=== PATIENT | female | born 1965 | race African-American/Black ===

== ENCOUNTER 2021-09-27 14:23 | Observation (INO) ==
[2021-09-27 17:35] LABS: Bacteria,Urine Many /HPF (Few); Hyaline Casts,Urine 2 /LPF (0-3); Mucus,Urine Moderate /LPF (Occasional); RBC,Urine 2 /HPF (0-4); Squamous Epithelial Cell,Urine Occasional /HPF (0-10)
[2021-09-27 18:01] LABS: Bilirubin,Urine Small mg/dL (Negative); Blood, Urine Negative (Negative); Glucose,Urine (UA) Negative (Negative); Ketones,Urine Trace mg/dL (Negative); Nitrite,Urine Negative (Negative); Protein,Urine 100 mg/dL (Negative); Urine Appearance Clear (Clear); Urine Color Yellow (Yellow); Urine Urobilinogen 0.2 eU/dL (<2.0)
[2021-09-27 18:23] LABS: Basophils % 0.4 % (0.0-0.8); Eosinophils % 0.8 % (0.00-10.9); Hematocrit 33.1 VOL% (35.7-47.0); Hemoglobin 11.6 GM/DL (12.0-16.0); Immature Granulocytes % 0.8 %; Immature Granulocytes Absolute 0.04 #; Lymphocytes # 1.4 10*3/uL (1.4-4.0); Lymphocytes % 27.3 % (21.3-54.2); Mean Corpuscular Volume 72.6 FL (87-102); Mean Platelet Volume 10.6 FL (9.6-12.0); Monocytes # 0.9 10*3/uL (0.11-0.8); Monocytes % 18.1 % (1.7-12.7); Neutrophils % 52.6 % (38.7-73.9); Platelet Count 188 T/CUMM (130-400); Red Blood Count 4.56 MC/CUMM (3.8-5.5); Red Cell Distribution Width 15.5 % (9.3-17.3); White Blood Count 5.1 T/CUMM (4-12)
[2021-09-27 18:37] LABS: Urine pH 6.5 (4.5-8.0)
[2021-09-27 18:38] LABS: Urine Specific Gravity 1.025 (1.001-1.035)
[2021-09-27 18:40] LABS: Albumin 3.5 G/DL (3.4-5.0); Bilirubin,Total 0.5 MG/DL (0.20-1.00); Calcium 9.7 MG/DL (8.5-10.1); Potassium 3.1 MMOL/L (3.5-5.1); Total Protein 7.8 G/DL (6.4-8.2)
[2021-09-27 19:07] LABS: Band Neutrophils 41 % (0-10); Eosinophils 1 % (0-10); Hypochromia 1+; Lymphocytes 25 % (20-55); Microcytosis 1+; Platelet Estimate Adequate; Total Cells Counted 100
[2021-09-27] MEDS ORDERED: ONDANSETRON 4 MG/2 ML VIAL IV PRN (19:26)
[2021-09-27] MEDS ORDERED: ACETAMINOPHEN 325 MG TABLET PO PRN (19:26)
[2021-09-27] MEDS: SODIUM CHLOR 0.9% KCL 40 MEQ 40 MEQ/1,000 ML BAG IV SCH (21:56)
[2021-09-27] MEDS: CIPROFLOXACIN INJ 400 MG/200 ML PREMIX IV SCH (22:11)
[2021-09-28] MEDS: metroNIDAZOLE INJ 500 MG/100 ML PREMIX IV SCH ×3 (00:14→17:26)
[2021-09-28] MEDS: LOPERAMIDE 1 MG/7.5 ML 30 ML BOTTLE PO PRN ×2 (04:05→08:50)
[2021-09-28 04:41] LABS: Basophils % 0.6 % (0.0-0.8); Eosinophils % 0.6 % (0.00-10.9); Hematocrit 29.5 VOL% (35.7-47.0); Hemoglobin 9.9 GM/DL (12.0-16.0); Immature Granulocytes % 0.8 %; Immature Granulocytes Absolute 0.04 #; Lymphocytes # 1.3 10*3/uL (1.4-4.0); Lymphocytes % 25.6 % (21.3-54.2); Mean Corpuscular HGB Conc 33.6 GM/DL (32-36); Mean Corpuscular Volume 73.9 FL (87-102); Mean Platelet Volume 11.1 FL (9.6-12.0); Monocytes % 19.3 % (1.7-12.7); Neutrophils % 53.1 % (38.7-73.9); Platelet Count 187 T/CUMM (130-400); Red Blood Count 3.99 MC/CUMM (3.8-5.5); Red Cell Distribution Width 15.3 % (9.3-17.3); White Blood Count 5.1 T/CUMM (4-12)
[2021-09-28 05:04] LABS: Band Neutrophils 3 % (0-10); Eosinophils 1 % (0-10); Hypochromia Slight; Lymphocytes 28 % (20-55); Microcytosis Slight; Platelet Estimate Adequate; Total Cells Counted 100
[2021-09-28 05:09] LABS: Albumin 2.8 G/DL (3.4-5.0); Bilirubin,Total 0.4 MG/DL (0.20-1.00); Calcium 8.6 MG/DL (8.5-10.1); Osmolality,Calculated 278.4 MOS/KG (273-304); Total Protein 6.4 G/DL (6.4-8.2)
[2021-09-28] MEDS: SODIUM CHLOR 0.9% KCL 40 MEQ 40 MEQ/1,000 ML BAG IV SCH ×3 (06:50→17:27)
[2021-09-28] MEDS: PANTOPRAZOLE 40 MG TABLET PO SCH (08:49)
[2021-09-28 08:54] LABS: % Iron Saturation 8.5 % (18-50); Ferritin 446.8 ng/mL (8-252)
[2021-09-28] MEDS: CIPROFLOXACIN INJ 400 MG/200 ML PREMIX IV SCH (09:52)
[2021-09-29] MEDS: SODIUM CHLOR 0.9% KCL 40 MEQ 40 MEQ/1,000 ML BAG IV SCH ×2 (00:33→06:18)
[2021-09-29] MEDS: CIPROFLOXACIN INJ 400 MG/200 ML PREMIX IV SCH ×2 (00:33→09:54)
[2021-09-29] MEDS: metroNIDAZOLE INJ 500 MG/100 ML PREMIX IV SCH ×2 (00:36→08:27)
[2021-09-29 05:23] LABS: Basophils # 0.1 10*3/uL (0.0-0.2); Basophils % 0.9 % (0.0-0.8); Eosinophils # 0.1 10*3/uL (0.0-0.87); Eosinophils % 1.8 % (0.00-10.9); Hematocrit 28.6 VOL% (35.7-47.0); Hemoglobin 9.8 GM/DL (12.0-16.0); Immature Granulocytes % 2.6 %; Immature Granulocytes Absolute 0.15 #; Lymphocytes # 1.8 10*3/uL (1.4-4.0); Lymphocytes % 31.7 % (21.3-54.2); Mean Corpuscular HGB Conc 34.3 GM/DL (32-36); Mean Corpuscular Volume 73.5 FL (87-102); Mean Platelet Volume 10.6 FL (9.6-12.0); Monocytes % 17.8 % (1.7-12.7); Neutrophils % 45.2 % (38.7-73.9); Platelet Count 205 T/CUMM (130-400); Red Blood Count 3.89 MC/CUMM (3.8-5.5); Red Cell Distribution Width 15.7 % (9.3-17.3); White Blood Count 5.7 T/CUMM (4-12)
[2021-09-29 05:37] LABS: Calcium 8.8 MG/DL (8.5-10.1); Potassium 3.6 MMOL/L (3.5-5.1)
[2021-09-29 05:48] LABS: Band Neutrophils 2 % (0-10); Eosinophils 2 % (0-10); Lymphocytes 37 % (20-55); Total Cells Counted 100
[2021-09-29 05:49] LABS: Atypical Lymphocytes Few; Hypochromia 1+; Microcytosis 1+; Platelet Estimate Normal
[2021-09-29] MEDS: PANTOPRAZOLE 40 MG TABLET PO SCH (08:26)
[2021-09-29 12:10] VITALS: BP 136/78
== END 2021-09-29 14:25 | disposition home or self-care (01) ==
LOC: N.ED 14:23 → N.EDINP 14:23 → SUATTDRO 19:26 → N.3E 22:50
PROVIDERS: ADMIT Internal Medicine; ATTEND Internal Medicine